=== PATIENT | male | born 1960 | race African-American/Black ===

== ENCOUNTER 2017-08-02 20:31 | Emergency (ER) | payer OTHER ==
[2017-08-02 21:05] LABS: HEMATOCRIT 42.4 % (39.0-50.0); HEMOGLOBIN 14.3 g/dl (14.0-18.0); IMMATURE GRANULOCYTES 0.3 % (0.0-1.0); MEAN CELL VOLUME 91.2 fL CALC (80.0-100.0); MEAN CORPUSCULAR HGB 30.8 pG CALC (26.0-32.0); MEAN CORPUSCULAR HGB CONC 33.7 g/L CALC (32.0-36.0); NEUT# 3.79 thou/uL (1.82-7.42); RED BLOOD COUNT 4.65 mill/uL (4.70-6.10); RED CELL DISTRI WIDTH 13.6 % (11.5-15.5)
[2017-08-02 21:17] LABS: ALBUMIN 5.2 g/dL (3.2-5.0); ALKALINE PHOSPHATASE 123 u/l (38-126); ANION GAP 21 (6-22 (CALC)); BILIRUBIN, TOTAL 0.5 mg/dL (0.0-1.4); BUN 23 mg/dL (9-20); BUN/CREATININE RATIO 20 (12-20 (CALC)); CARBON DIOXIDE 23 mmol/l (22-30); CHLORIDE 103 mmol/l (95-108); CREATININE 1.1 mg/dL (0.7-1.3); ETHYL ALCOHOL 0 mg/dl (0-30); GFR > 60 ML/MIN (>=60 (CALC)); GFR FOR AFR.AMER. > 60 ML/MIN (>=60 (CALC)); POTASSIUM 3.4 mmol/l (3.5-5.1); SGOT/AST 30 u/l (17-59); SGPT/ALT 31 u/l (21-72); SODIUM 143 mmol/l (137-146)
[2017-08-02 21:29] LABS: MYOGLOBIN 42 ng/mL (0 - 121)
[2017-08-02 22:10] LABS: PHENYTOIN (DILANTIN) 17 ug/mL (10 - 20)
[2017-08-02 22:45] LABS: URINE BILIRUBIN - DIPSTICK NEGATIVE (NEGATIVE); URINE BLOOD DIPSTICK SMALL (NEGATIVE); URINE COLOR YELLOW; URINE GLUCOSE - DIPSTICK NEGATIVE (NEGATIVE); URINE KETONE NEGATIVE (NEGATIVE); URINE LEUK ESTERASE NEGATIVE (NEGATIVE); URINE NITRITE - DIPSTICK NEGATIVE (Negative); URINE PH 5.5 (4.5-8.0); URINE PROTEIN - DIPSTICK 30 mg/dL (NEG-TRACE); URINE SPECIFIC GRAVITY >=1.030; URINE UROBILINOGEN - DIPSTICK 0.2 E.U./dL (0.2)
[2017-08-02 22:46] LABS: URINE CLARITY CLEAR
[2017-08-02 22:47] LABS: BARBITURATES POSITIVE (NEGATIVE); COCAINE NEGATIVE (NEGATIVE); METHADONE NEGATIVE (NEGATIVE); OXCYCODONE NEGATIVE (NEGATIVE); TETRAHYDROCANNABIONOL NEGATIVE (NEGATIVE); TRICYLIC ANTIDEPRESSANTS NEGATIVE (NEGATIVE)
[2017-08-02 22:52] LABS: URINE SQUAMOUS EPITHELIAL CELL FEW EPI/hpf (0-FEW); URINE WBC 0-2 WBC/hpf (0-5)
[2017-08-02 23:45] VITALS: BP 103/64
== END 2017-08-02 23:45 | disposition home or self-care (01) | DRG 101 ==
LOC: ED 20:31
PROVIDERS: Emergency Medicine
DX: G40.909 Epilepsy, unspecified, not intractable, without status epilepticus (principal)

== ENCOUNTER 2020-04-29 | Inpatient (IN) | payer OTHER ==
[~2020-04-29] VITALS: Ht 170.2 cm; Wt 59.5 kg
[2020-04-29] VITALS (11 sets, daily range): BP systolic 107–123; BP diastolic 59–69
--- NOTE | 2020-04-29 00:01 | NUR ---
PATIENT TO ROOM 15 VIA EMS STRETCHER. MEND EXAM STARTED. PATIENT MAKING NOISES BUT NO COMPREHENSIBLE WORDS. PATIENT HAS NO EFFORT AGAINST GRAVITY TO RIGHT ARM AND LEG. PATIENT IS ABLE TO TRACK STAFF AROUND THE ROOM WITH HIS EYES. SPOKE WITH GUARDS WHO ACCOMPANIED PATIENT. GUARD STATES PATIENT IS ABLE TO AMBULATE WITH A WALKER, STATES HE IS ABLE TO SPEAK SOUTH AFR[place] WITH AN ACCENT. STATES HE IS NORMALLY ABLE TO FEED HIMSELF AND PERFORM HIS ADLS. PATIENT WAS SEEN EARLIER AT [facility] FOR POSSIBLE HEAT STROKE. LAST KN0WN WELL TO BE 1500. STROKE ALERT CALLED AND PATIENT TAKEN TO CAT SCAN.
--- NOTE | 2020-04-29 00:16 | NUR ---
JUST SPOKE WITH NATASHA IN MEDICAL AT [facility]. 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 NATASHA WAS UNABLE TO STATE WHAT SIDE PT HAD PREVIOUS WEAKNESS.
--- NOTE | 2020-04-29 00:45 | NUR ---
PT BACK FROM CT- TELENEUROLOGIST ATTEMPTING TO CALL IN AGAIN.
--- NOTE | 2020-04-29 00:50 | NUR ---
GUARDS IN ROOM WITH PT STATED PT WAS JUST SITTING OUTSIDE, NOT WORKING IN THE [place]ON REPORTED. PER GUARDS PT NORMALLY WALKS WITH A WALKER. UNABLE TO FOLLOW SIMPLE INSTRUCTIONS WITH OUT MULTIPLE ATTEMPS WITH VISUAL CUES. WHEN SHOWN PICTURES HE ONLY SAID NO WHEN I POINTED TO CHAIR ETC AND ASKED IF HE COULD TELL ME WHAT THEY WERE. PT'S LEFT EYE IS PINPOINT AND NON REACTIVE RIGHT EYE IS 3 AND BRISK.
[2020-04-29 00:52] LABS: HEMATOCRIT 41.6 % (39.0-50.0); HEMOGLOBIN 13.4 g/dl (14.0-18.0); IMMATURE GRANULOCYTES 0.2 % (0.0-5.0); MEAN CELL VOLUME 83.4 fL CALC (80.0-100.0); MEAN CORPUSCULAR HGB 26.9 pG CALC (26.0-32.0); MEAN CORPUSCULAR HGB CONC 32.2 g/dL CAL (32.0-36.0); NEUT# 3.63 thou/uL (1.82-7.42); RED BLOOD COUNT 4.99 mill/uL (4.70-6.10); RED CELL DISTRI WIDTH 13.9 % (11.5-15.5)
[2020-04-29 01:01] LABS: ALBUMIN 4.2 g/dL (3.2-5.0); ALKALINE PHOSPHATASE 67 u/l (38-126); ANION GAP 14 (6-22 (CALC)); BUN 23 mg/dL (8-23); BUN/CREATININE RATIO 18 (12-20 (CALC)); CARBON DIOXIDE 24 mmol/l (22-30); CHLORIDE 103 mmol/l (95-108); CREATININE 1.3 mg/dL (0.7-1.3); GFR 56 ML/MIN (>=60 (CALC)); GFR FOR AFR.AMER. > 60 ML/MIN (>=60 (CALC)); POTASSIUM 3.4 mmol/l (3.5-5.1); SGOT/AST 34 u/l (19-48); SODIUM 137 mmol/l (137-146)
[2020-04-29 01:03] LABS: ACT PARTIAL THROMBO TIME 28.4 SECONDS (20.0-32.5); BILIRUBIN, TOTAL 1.1 mg/dL (0.0-1.4); INTERNATIONAL NORMALIZED RATIO 1.2 RATIO (0.7-1.3)
[2020-04-29 01:13] LABS: MYOGLOBIN 218 ng/mL (0 - 121)
--- NOTE | 2020-04-29 01:15 | NUR ---
TELESTROKE DONE PT, PT ABLE TO DRINK WATER SO ASA WILL BE GIVEN. DR GUERRERO WATCHED SWALLOW STUDY AND PT'S ABILITY TO SWALLOW WATER.
--- NOTE | 2020-04-29 02:11 | NUR ---
PT ADMITTED TO HOSPITAL WILL BE IN ER 15. 1 GUARD AT BEDSIDE AND WILL STAY WITH PT. PT HAS RIGHT LEG CUFFED TO STRETCHER.
--- NOTE | 2020-04-29 03:11 | NUR ---
NO CHANGE IN MEND. PT WAKES EASILY BUT STILL ONLY SAYS YES OR NO. ALL QUESTIONS WERE ANSWERED WITH A YES THIS TIME. GUARD AT BEDSIDE. PT CONTINUES TO BE CUFFED BY RIGHT ANKLE TO BED.
--- NOTE | 2020-04-29 04:11 | NUR ---
NO CHANGE IN MEND ASSESSMENT. PT WAKES EASILY. WILL CHANGE TO HOSPITAL BED.
--- NOTE | 2020-04-29 06:11 | NUR ---
PT RESTING QUIETLY. HE WAKES EASILY. STILL NO CHANGE IN VERBAL SPEACH BUT PT IS MOVING RIGHT ARM LEG.
--- NOTE | 2020-04-29 06:44 | NUR ---
PT ABLE TO HOLD RIGHT ARM UP AND RIGHT LEG. STILL ONLY SAYS YES AND NO ONLY.
--- NOTE | 2020-04-29 07:15 | NUR ---
REPORT GIVEN TO RADHA DONOHUE.
--- NOTE | 2020-04-29 07:26 | NUR ---
URINE COLLECTED AND SENT TO LAB
--- NOTE | 2020-04-29 07:30 | NUR ---
NIH SCALE DONE. PT HAS IMPROVEMENT OF SYMPTOMS IN COMPARISON TO BEING ADMITTED. HE IS STILL UNABLE TO ARTICULATE WORDS/SPEECH OTHER THAT NO AN YES. HE DID SLURRED ONE OTHER WORD SAYING "THANK YOU" FOR GIVING HIM A BLANKET
[2020-04-29 08:04] LABS: URINE BILIRUBIN - DIPSTICK NEGATIVE (NEGATIVE); URINE BLOOD DIPSTICK MODERATE (NEGATIVE); URINE COLOR YELLOW; URINE GLUCOSE - DIPSTICK NEGATIVE (NEGATIVE); URINE KETONE TRACE mg/dL (NEGATIVE); URINE LEUK ESTERASE NEGATIVE (NEGATIVE); URINE PROTEIN - DIPSTICK 100 mg/dL (NEG-TRACE); URINE UROBILINOGEN - DIPSTICK 0.2 E.U./dL (0.2)
[2020-04-29 08:14] LABS: URINE EPITHELIAL CELLS RARE EPI/hpf (0-FEW); URINE NITRITE - DIPSTICK NEGATIVE (Negative); URINE WBC 0-2 WBC/hpf (0-5)
--- NOTE | 2020-04-29 08:28 | NUR ---
WATER GIVEN PT IS AWARE WE NEED URINE SPECIMEN AWAITING SPECIMEN
[2020-04-29] MEDS ORDERED: CARVEDILOL3.125 MG PO (09:35)
[2020-04-29] MEDS ORDERED: LOPID600 MG PO (09:36)
[2020-04-29] MEDS ORDERED: NORVIR100 M1 PO (09:37)
[2020-04-29] MEDS ORDERED: EPIVIR300 MG PO (09:37)
[2020-04-29] MEDS ORDERED: PREZISTA800 MG PO (09:38)
[2020-04-29] MEDS ORDERED: KEPPRA750 M2 PO (09:39)
[2020-04-29] MEDS ORDERED: PRAVASTATIN SOD20 MG PO (09:40)
[2020-04-29] MEDS ORDERED: SENNA-TABS8.6 MG PO (09:40)
[2020-04-29] MEDS ORDERED: NORVASC2.5 M1 PO (09:41)
--- NOTE | 2020-04-29 10:36 | NUR ---
Gerber Yan RN and Brand Engineer, informed BEEF SPECIALIST that ST is not needed at this time.
--- NOTE | 2020-04-29 11:18 | NUR ---
PATIENT PASSED SWALLOW EVAL AND MALTED MILK MIXER VEST NOTIFIED PATIENT REMOVED FROM NPO STATUS AND DIET ORDER PLACED
--- NOTE | 2020-04-29 11:26 | NUR ---
PT REFUSED TYLENOL AND AWARE OF SIDE EFFECTS OF NOT TAKING MEDICATION. HE STILL REFUSES. WILL RECHECK TEMP IN AN HOUR. REMOVED BLANKET SHEETS
--- NOTE | 2020-04-29 12:55 | NUR ---
NOTIFIED MD DOCKERY AND HIS BIAS CUTTING MACHINE OPERATOR PERNELL WHO ARE CURRENTLY ROUNDING ABOUT REFUSAL OF TYLENOL AND HIS TEMP NOW AT 102.1
--- NOTE | 2020-04-29 13:45 | NUR ---
TYELNOL IV GIVEN AT THIS TIME. PT HAS NO COMPLAINTS
--- NOTE | 2020-04-29 14:36 | NUR ---
TEMP HAS GONE SIGNIFICANTLY DOWN SINCE TYLENOL ADMINISTRATION SEE AUG. NO CHANGES TO ASSESSMENT
--- NOTE | 2020-04-29 19:06 | NUR ---
PT TRANSFERRED TO ICU BED CURRENTLY STILL AWAITING A BED AT THIS TIME. STABLE WITHOUT DISTRESS
--- NOTE | 2020-04-29 19:50 | NUR ---
PT TEMP 98.5. PT DID NOT EAT DINNER. PER GUARDS LAST NIGHT PT HAS NOT BEEN EATING LATELY. WATER OFFERED AND PT FINISHED OFF 120CC. NS AT 125 UP. 400 CC OF URINE OUT. PT AWAKE AND ALERT BUT STILL NOT TALKING BUT OCCASIONAL ONE WORD MOSLTY YES OR NO. STILL UNABLE TO STATE WHAT THE PICTURES ARE, CHAIR, GLOVE ETC. PT ABLE TO MOVE ALL EXTREMITIES AND NOW RIGHT ARM AND LEG WITH DRIFT THAT DOESN'T HIT THE BED. GUARD OUTSIDE ROOM. SHE DOES CHECK ON PT FREQUENTLY AND IS THERE WHENEVER I ENTER ROOM.
--- NOTE | 2020-04-29 21:50 | NUR ---
PT RESTING QUIETLY WITH SHEET OVER HEAD. NO CHANGE IN ASSESSMENT.
[2020-04-30] VITALS (10 sets, daily range): BP systolic 96–122; BP diastolic 58–65
--- NOTE | 2020-04-30 01:50 | NUR ---
PT AWAKE. ASKED IF HE NEEDED TO URINATE SINCE IV FLUIDS INFUSING. PT NODDED YES AND URINAL GIVEN.
--- NOTE | 2020-04-30 06:28 | NUR ---
04/29/20 Attempted to see patient x2. After speaking with nursing, we opted to defer eval for now based on the patient's current mental state and his willingness to participate with interventions
--- NOTE | 2020-04-30 07:00 | NUR ---
RECEIVED REPORT FROM RADHA RAMSEY.
--- NOTE | 2020-04-30 09:00 | NUR ---
PT SLEEPING IN BED. ALERT TO VOICE COMMANDS. SECURITY/SITTER AT BEDSIDE. CALL LIGHT WITHIN REACH, BED IN LOW POSITION. STABLE ON MONITOR.
--- NOTE | 2020-04-30 11:15 | NUR ---
PT SLEEPING. NO COMPLAINTS AT THIS TIME. SECURITY/SITTER AT BEDSIDE. NO CHANGE FROM PREVIOUS NOTE.
--- NOTE | 2020-04-30 13:35 | NUR ---
PT SOILED HIMSELF IN BED. CLEANED UP AND LINENS CHANGED. PT SPEECH IMPROVED SINCE LAST ASSESSMENT. NOW MORE CLEAR AND VERBAL. CUFFS IN PLACE TO LOWER EXTREMITY WITH GOOD CIRCULATION.VITALS STABLE.
--- NOTE | 2020-04-30 15:30 | NUR ---
PT RESTING IN BED, IN LOW POSITION. CALL LIGHT WITHIN REACH.
--- NOTE | 2020-04-30 17:30 | NUR ---
PT PROVIDED MEAL TRAY, ENCOURAGED TO EAT BUT REFUSING AT THIS TIME. SECURITY/SITTER AT BEDSIDE.
--- NOTE | 2020-04-30 18:51 | NUR ---
REPORT GIVEN TO RADHA RAMSEY.
--- NOTE | 2020-04-30 19:00 | NUR ---
TOOK OVER PT CARE FROM SEPTEMBER, RADHA.
--- NOTE | 2020-04-30 19:50 | NUR ---
SPOKE WITH DR AUGUSTIN. PT TO BE TRANSFER TO [facility] WITH TELE.
--- NOTE | 2020-04-30 22:40 | NUR ---
REPORT GIVEN TO RADHA HUYNH.
--- NOTE | 2020-04-30 22:50 | NUR ---
TRANSPORTED PT TO 285 ON HOSPITAL BED. TELE MONITOR ON, NO OXYGEN. PT'S SATS HAVE BEEN 98-100% HIS ENTIRE ADMIT.
--- NOTE | 2020-04-30 23:10 | NUR ---
PT RECEIVED FROM ED TO ROOM 261. ARRIVES VIA STRETCHER ACCOMPANIED BY BRAULIO GARCIA. PT AMBULATORY TO BED. GAIT STEADY AND BALANCED. PT DENIES PAIN AT THIS TIME. ORIENTED TO UNIT, ROOM, CALL PALOMO, LIGHTS, TV. WATER PROVIDED. PT CALL PALOMO WITHIN REACH. AGREES TO CALL PRN.
--- NOTE | 2020-04-30 23:15 | NUR ---
PT FROM [facility], GUARD PRESENT. PT SHACKLED TO THE BED. CIRCULATION CHECKED. WILL CONTINUE TO MONITOR.
--- NOTE | 2020-04-30 23:52 | NUR ---
PT RESTING QUIETLY WITH SHEET OVER HEAD. NO CHANGE IN ASSESSMENT.
--- NOTE | 2020-05-01 00:05 | NUR ---
PT LAYING IN BED WITH EYES CLOSED, APPEARS TO BE SLEEPING, APPEARS COMFORTABLE AND IN NO DISTRESS. RESPIRATIONS REGULAR AND UNLABORED. ITEMS REMAIN WITHIN REACH, CALL PALOMO REMAINS WITHIN REACH. BED REMAINS LOCKED AND IN LOW POSITION WITH BEDRAILS UP X2. WILL CONTINUE TO MONITOR.
[2020-05-01 04:00] VITALS: BP 109/58
--- NOTE | 2020-05-01 04:05 | NUR ---
PT RESTING IN BED, NO SIGNS OF DISTRESS NOTED, RESP EVEN AND UNLABORED. PT VOICES NO NEEDS OR COMPLAINTS AT THIS TIME. PT SHACKLED TO THE BED. CIRCULATION CONFIRMED. GUARD PRESENT. CALL LIGHT IN REACH, CONTINUE TO MONITOR.
[2020-05-01 05:41] LABS: HEMATOCRIT 41.5 % (39.0-50.0); HEMOGLOBIN 13.3 g/dl (14.0-18.0); IMMATURE GRANULOCYTES 0.7 % (0.0-5.0); MEAN CELL VOLUME 83.8 fL CALC (80.0-100.0); MEAN CORPUSCULAR HGB 26.9 pG CALC (26.0-32.0); NEUT# 2.58 thou/uL (1.82-7.42); RED BLOOD COUNT 4.95 mill/uL (4.70-6.10)
[2020-05-01 06:11] LABS: ALBUMIN 3.1 g/dL (3.2-5.0); ALKALINE PHOSPHATASE 53 u/l (38-126); ANION GAP 13 (6-22 (CALC)); BILIRUBIN, TOTAL 0.7 mg/dL (0.0-1.4); BUN 13 mg/dL (8-23); BUN/CREATININE RATIO 15 (12-20 (CALC)); CARBON DIOXIDE 22 mmol/l (22-30); CHLORIDE 106 mmol/l (95-108); CREATININE 0.9 mg/dL (0.7-1.3); GFR > 60 ML/MIN (>=60 (CALC)); GFR FOR AFR.AMER. > 60 ML/MIN (>=60 (CALC)); POTASSIUM 3.1 mmol/l (3.5-5.1); SGOT/AST 32 u/l (19-48); SODIUM 139 mmol/l (137-146); TOTAL PROTEIN 6.1 g/dL (6.3-8.2)
--- NOTE | 2020-05-01 08:00 | NUR ---
SHIFT CHANGE REPORT, PT AWAKE AND ALERT TO SELF AND PLACE, O C/O DISCOMFORT, IVF INFUSING, TELE MONITOR IN PLACE, PT C/O K TABLETS "TOO BIG" TO SWALLOW, TABS WERE BROKEN AND APPLE SAUCE OFFERED TO AID IN SWALLOWING WHICH WAS EFFECTIVE, SHACKLED TO BED, BED IN LOWEST POSITION AND CALL PALOMO IN REACH.
--- NOTE | 2020-05-01 08:19 | NUR ---
PER JOSE IN LAB, PRELIM BLOOD CX SHOWS GRAM POSITIVE COCCI IN 1 SET, BOTH BOTTLES. RESULTS REPORTED TO GERARD. LIKELY A CONTAMINANT, PT WBC WNL AND AFEBRILE, WILL F/U WITH FINAL.
[2020-05-01 08:27] VITALS: BP 116/63
[2020-05-01 10:40] VITALS: BP 112/59
--- NOTE | 2020-05-01 12:00 | NUR ---
PT RESTING IN BED AND REQUESTING DIAPERS, ADVISED TO USE URINAL AND BSC HE IS ABLE TO DO SO. MEDIAL TEAM ROUNDED AND DISCUSSED D/C PLANS.
--- NOTE | 2020-05-01 16:18 | NUR ---
Discharge instructions given. Patient verbalizes understanding of same. [facility]. All belongings sent with pt.
--- NOTE | 2020-05-03 12:18 | NUR ---
FINAL BLOOD CULTURES DISCUSSED WITH AND SENT TO [facility] OF [facility]. FAXED TO RADHA NUNO. /2 SETS GROWING STREPTOCOCCUS ORALIS. SUSPECTS CONTAMINATION,RE-CULTURE SUGGESTED DUE TO PATIENTS HIV STATUS.
== END 2020-05-01 16:20 | disposition designated cancer center or children's hospital (05) | DRG 65 ==
LOC: ED → ED-I 01:00 → ED 02:10 → ED-I 02:11 → UNDODEPER 04-30 02:11 → MS2 04-30 19:50
PROVIDERS: Family Medicine; Internal Medicine; ADMIT Internal Medicine; ATTEND Internal Medicine
DX: I63.9 Cerebral infarction, unspecified (principal); N17.9 Acute kidney failure, unspecified; B20 Human immunodeficiency virus [HIV] disease; R47.81 Slurred speech; R29.810 Facial weakness; E86.0 Dehydration; R29.714 NIHSS score 14; G40.909 Epilepsy, unspecified, not intractable, without status epilepticus; I10 Essential (primary) hypertension; Z79.899 Other long term (current) drug therapy; Z86.73 Personal history of transient ischemic attack (TIA), and cerebral infarction without residual deficits
CPT/HCPCS: J0131; Q9967; S0164

== ENCOUNTER 2020-08-05 15:10 | Emergency (ER) | payer OTHER ==
[~2020-08-05] VITALS: Ht 170.2 cm; Wt 81.0 kg
[~2020-08-05 15:10] MED LIST: CARVEDILOL3.125 MG PO; EPIVIR300 MG PO; KEPPRA750 M2 PO; LOPID600 MG PO; NORVASC2.5 M1 PO; NORVIR100 M1 PO; PRAVASTATIN SOD20 MG PO; PREZISTA800 MG PO; SENNA-TABS8.6 MG PO
[2020-08-05 16:56] LABS: MEAN CORPUSCULAR HGB 24.5 pG CALC (26.0-32.0); MEAN CORPUSCULAR HGB CONC 30.6 g/dL CAL (32.0-36.0); NEUT# 4.44 thou/uL (1.82-7.42); RED BLOOD COUNT 4.25 mill/uL (4.70-6.10); RED CELL DISTRI WIDTH 19.8 % (11.5-15.5)
[2020-08-05 16:58] LABS: HEMOGLOBIN 10.4 g/dl (14.0-18.0)
[2020-08-05 17:09] LABS: ALBUMIN 3.3 g/dL (3.2-5.0); MAGNESIUM 2.1 mg/dL (1.6-2.3); POTASSIUM 3.7 mmol/l (3.5-5.1)
[2020-08-05 17:11] LABS: INTERNATIONAL NORMALIZED RATIO 1.5 RATIO (0.7-1.3); PROTHROMBIN TIME 15.1 SECONDS (9.0-12.5)
[2020-08-05 17:14] LABS: BILIRUBIN, TOTAL 2.8 mg/dL (0.0-1.4); CREATININE 1.9 mg/dL (0.7-1.3)
[2020-08-05 17:39] LABS: TSH, 3RD GENERATION 2.07 uIU/mL (0.47 - 4.68)
[2020-08-05] MEDS ORDERED: TAMSULOSIN0.4 MG PO (18:40)
[2020-08-05] MEDS ORDERED: TENOFOVIR DISO300 MG PO (18:40)
[2020-08-05] MEDS ORDERED: MAXZIDE-2537.5 MG/TA PO (18:41)
[2020-08-05] MEDS ORDERED: FENOFIBRATE145 MG PO (18:41)
[2020-08-05] MEDS ORDERED: OMEPRAZOLE20 MG PO (18:42)
[2020-08-05 20:36] VITALS: BP 84/58
== END 2020-08-05 21:00 | disposition short-term general hospital (02) | DRG 101 ==
LOC: ED 15:10
PROVIDERS: Family Medicine
PROC: 05HY33Z Insertion of Infusion Device into Upper Vein, Percutaneous Approach (ICD-10-PCS; principal; 2020-08-05)
DX: G40.009 Localization-related (focal) (partial) idiopathic epilepsy and epileptic syndromes with seizures of localized onset, not intractable, without status epilepticus (principal); E87.2 Acidosis; I95.9 Hypotension, unspecified; R93.2 Abnormal findings on diagnostic imaging of liver and biliary tract; N28.9 Disorder of kidney and ureter, unspecified; E80.6 Other disorders of bilirubin metabolism; I10 Essential (primary) hypertension; Z21 Asymptomatic human immunodeficiency virus [HIV] infection status; Z86.73 Personal history of transient ischemic attack (TIA), and cerebral infarction without residual deficits; Z20.822 Contact with and (suspected) exposure to COVID-19
CPT/HCPCS: J1953